=== PATIENT | female | born 1950 | race Caucasian/White ===

== ENCOUNTER 2020-01-24 16:55 | Inpatient (IN) | payer MEDICARE ==
[2020-01-24] MEDS ORDERED: ASPIRIN 81 MG PO STA (17:19)
[2020-01-24] MEDS ORDERED: MORPHINE SULFATE 2 MG/ML SYRINGE IVP STA (17:25)
[2020-01-24] MEDS ORDERED: OSELTAMIVIR 75 MG CAP PO STA (17:27)
[2020-01-24 17:58] LABS: Basophils % (A) 0 %; Eosinophils % (A) 0 %; HCT 36.4 % (34.0-46.0); Lymphocytes # (A) 2.3 k/uL (1.0-4.8); Lymphocytes % (A) 13 %; MCH 27.5 pg (25.0-35.0); MCV 83.1 fL (80.0-100.0); Monocytes # (A) 0.5 k/uL (0-1.0); Monocytes % (A) 3 %; Neutrophils # (A) 15.3 k/uL (1.3-7.7); Neutrophils % (A) 84 %; Platelet Count 179 k/uL (150-450); RBC 4.38 m/uL (3.80-5.40); RDW 13.1 % (11.5-15.5); WBC 18.3 k/uL (3.8-10.6)
--- NOTE | 2020-01-24 18:03 | ED ---
General Adult HPI - General Chief complaint: Upper Respiratory Infection Stated complaint: Cough, body aches Time Seen by Provider: 01/24/20 17:04 Source: patient, RN notes reviewed, old records reviewed Mode of arrival: ambulatory Limitations: no limitations - History of Present Illness Initial comments: 69-year-old female patient upper intestinal history of STD for approximately one day of cough, fever, chest pain, short of breath. Patient reports that the pain is substernal pleuritic in nature. Patient did have a recent drive from [place] to [place] approximately one week ago. Course others are sick with similar symptoms. Denies any prior past medical history. Patient reports that she had a cardiac catheterization one year ago which did not display significant disease, no stent was placed. Denies any leg pain. Denies any prior history of VTE. Systemic: Pt denies fatigue, fever/chills, rash. Pt denies weakness, night sweats, weight loss. Neuro: Pt denies headache, visual disturbances, syncope or pre-syncope. HEENT: Pt denies ocular discharge or irritation, otalgia, rhinorrhea, pharyngitis or notable lymphadenopathy. Cardiopulmonary: Pt denies heart palpitations, dyspnea on exertion. Abdominal/GI: Pt denies abdominal pain, n/v/d. : Pt denies dysuria, burning w/ urination, frequency/urgency. Denies new onset urinary or bowel incontinence. MSK: Pt denies myalgia, loss of strength or function in extremities. Neuro: Pt denies new onset weakness, paresthesias. - Related Data Home Medications Medication Instructions Recorded Confirmed Alendronate Sodium [Fosamax] 70 mg PO REICH 01/24/20 01/24/20 Dextromethorphan Polistirex 60 mg PO Q12H PRN 01/24/20 01/24/20 [Delsym] Naproxen 375 mg PO BID PRN 01/24/20 01/24/20 Allergies Allergy/AdvReac Type Severity Reaction Status Date / Time Penicillins Allergy Itching Verified 01/24/20 19:41 Review of Systems ROS Statement: Those systems with pertinent positive or pertinent negative responses have been documented in the HPI. ROS Other: All systems not noted in ROS Statement are negative. Past Medical History Past Medical History: No Reported History History of Any Multi-Drug Resistant Organisms: None Reported Past Surgical History: Breast Surgery Past Psychological History: No Psychological Hx Reported Smoking Status: Current every day smoker Past Alcohol Use History: None Reported Past Drug Use History: None Reported General Exam - General Exam Comments Initial Comments: Constitutional: NAD, AOX3, Pt has pleasant affect. HEENT: NC/AT, trachea midline, neck supple, no lymphadenopathy. Posterior pharynx non erythematous, without exudates. External ears appear normal, without discharge. Mucous membranes moist. Eyes PERRLA, EOM intact. There is no scleral icterus. No pallor noted. Cardiopulmonary: RRR, no murmurs, rubs or gallops, no JVD noted. Lungs CTAB in anterior and posterior mejia. No peripheral edema. Abdominal exam: Abdomen soft and non-distended. Abdomen non-tender to palpation in all 4 quadrants. Bowel sounds active in LLQ. No hepatosplenomegaly. No ecchymosis Neuro: CN II-XII grossly intact. No nuchal rigidity. No raccon eyes, no hwang sign, no hemotympanum. No cervical spinal tenderness. MSK: No posterior calf tenderness bilaterally, homans sign negative bilaterally. Posterior tibialis and radial pulse +2 bilaterally. Sensation intact in upper and lower extremities. Full active ROM in upper and lower extremities, 5/5 stregnth. Limitations: no limitations Course Vital Signs 01/24/20 01/24/20 01/24/20 16:57 18:57 19:27 Temperature 98.4 F 98.5 F Pulse Rate 93 66 77 Respiratory 22 18 20 Rate Blood Pressure 110/67 138/72 138/68 O2 Sat by Pulse 96 98 98 Oximetry 01/24/20 20:00 Temperature 98.8 F Pulse Rate 70 Respiratory 18 Rate Blood Pressure 138/61 O2 Sat by Pulse 97 Oximetry Medical Decision Making - Medical Decision Making 69-year-old female patient upper intestinal history of STD for approximately one day of cough, fever, chest pain, short of breath. Patient reports that the pain is substernal pleuritic in nature. Patient did have a recent drive from [place] to [place] approximately one week ago. Course others are sick with similar symptoms. Denies any prior past medical history. Patient reports that she had a cardiac catheterization one year ago which did not display significant disease, no stent was placed. Denies any leg pain. Denies any prior history of VTE. Patient also has a stable, afebrile. Physical exam did not display acute pathology. Laboratory investigations are obtained, significant for leukocytosis of 18. Lungs the a positive. Troponin negative. D-dimer was elevated. CT chest angiography was obtained, this displayed no evidence of PE. Bilateral pulmonary interstitial and alveolar infiltrates. Right lower lobe mucus plugging. Patient has been visiting her mother who is in hospice on a daily basis she will be treated for nosocomial pneumonia. Reports that she did previously have a amoxicillin ALLERGY as a child hours and taking penicillins last 5 years without difficulty. Troponins will be trended. Patient is pain- free at this time. Case discussed in depth with Dr. Baxter, admitting physician Dr. Saha. - Lab Data Result diagrams: 01/24/20 17:39 01/24/20 17:39 Lab Results 01/24/20 01/24/20 01/24/20 Range/Units 17:00 17:39 17:39 WBC 18.3 H (3.8-10.6) k/uL RBC 4.38 (3.80-5.40) m/uL Hgb 12.0 (11.4-16.0) gm/dL Hct 36.4 (34.0-46.0) % MCV 83.1 (80.0-100.0) fL MCH 27.5 (25.0-35.0) pg MCHC 33.0 (31.0-37.0) g/dL RDW 13.1 (11.5-15.5) % Plt Count 179 (150-450) k/uL Neutrophils % 84 % Lymphocytes % 13 % Monocytes % 3 % Eosinophils % 0 % Basophils % 0 % Neutrophils # 15.3 H (1.3-7.7) k/uL Lymphocytes # 2.3 (1.0-4.8) k/uL Monocytes # 0.5 (0-1.0) k/uL Eosinophils # 0.0 (0-0.7) k/uL Basophils # 0.0 (0-0.2) k/uL PT (9.0-12.0) sec INR (<1.2) APTT (22.0-30.0) sec D-Dimer (<0.60) mg/L FEU Sodium 138 (137-145) mmol/L Potassium 4.0 (3.5-5.1) mmol/L Chloride 107 (98-107) mmol/L Carbon Dioxide 23 (22-30) mmol/L Anion Gap 8 mmol/L BUN 20 H (7-17) mg/dL Creatinine 0.61 (0.52-1.04) mg/dL Est GFR (CKD-EPI)AfAm >90 (>60 ml/min/1.73 sqM) Est GFR (CKD-EPI)NonAf >90 (>60 ml/min/1.73 sqM) Glucose 110 H (74-99) mg/dL Plasma Lactic Acid Ti (0.7-2.0) mmol/L Calcium 8.9 (8.4-10.2) mg/dL Magnesium 2.0 (1.6-2.3) mg/dL Total Bilirubin 0.8 (0.2-1.3) mg/dL AST 32 (14-36) U/L ALT 17 (4-34) U/L Alkaline Phosphatase 75 (38-126) U/L Troponin I (0.000-0.034) ng/mL NT-Pro-B Natriuret Pep pg/mL Total Protein 6.8 (6.3-8.2) g/dL Albumin 3.9 (3.5-5.0) g/dL Influenza Type A RNA Detected H (Not Detectd) Influenza Type B (PCR) Not Detected (Not Detectd) 01/24/20 01/24/20 01/24/20 Range/Units 17:39 17:39 17:39 WBC (3.8-10.6) k/uL RBC (3.80-5.40) m/uL Hgb (11.4-16.0) gm/dL Hct (34.0-46.0) % MCV (80.0-100.0) fL MCH (25.0-35.0) pg MCHC (31.0-37.0) g/dL RDW (11.5-15.5) % Plt Count (150-450) k/uL Neutrophils % % Lymphocytes % % Monocytes % % Eosinophils % % Basophils % % Neutrophils # (1.3-7.7) k/uL Lymphocytes # (1.0-4.8) k/uL Monocytes # (0-1.0) k/uL Eosinophils # (0-0.7) k/uL Basophils # (0-0.2) k/uL PT 10.0 (9.0-12.0) sec INR 1.0 (<1.2) APTT 23.3 (22.0-30.0) sec D-Dimer 1.20 H (<0.60) mg/L FEU Sodium (137-145) mmol/L Potassium (3.5-5.1) mmol/L Chloride (98-107) mmol/L Carbon Dioxide (22-30) mmol/L Anion Gap mmol/L BUN (7-17) mg/dL Creatinine (0.52-1.04) mg/dL Est GFR (CKD-EPI)AfAm (>60 ml/min/1.73 sqM) Est GFR (CKD-EPI)NonAf (>60 ml/min/1.73 sqM) Glucose (74-99) mg/dL Plasma Lactic Acid Ti (0.7-2.0) mmol/L Calcium (8.4-10.2) mg/dL Magnesium (1.6-2.3) mg/dL Total Bilirubin (0.2-1.3) mg/dL AST (14-36) U/L ALT (4-34) U/L Alkaline Phosphatase (38-126) U/L Troponin I <0.012 (0.000-0.034) ng/mL NT-Pro-B Natriuret Pep 2170 pg/mL Total Protein (6.3-8.2) g/dL Albumin (3.5-5.0) g/dL Influenza Type A RNA (Not Detectd) Influenza Type B (PCR) (Not Detectd) 01/24/20 Range/Units 17:42 WBC (3.8-10.6) k/uL RBC (3.80-5.40) m/uL Hgb (11.4-16.0) gm/dL Hct (34.0-46.0) % MCV (80.0-100.0) fL MCH (25.0-35.0) pg MCHC (31.0-37.0) g/dL RDW (11.5-15.5) % Plt Count (150-450) k/uL Neutrophils % % Lymphocytes % % Monocytes % % Eosinophils % % Basophils % % Neutrophils # (1.3-7.7) k/uL Lymphocytes # (1.0-4.8) k/uL Monocytes # (0-1.0) k/uL Eosinophils # (0-0.7) k/uL Basophils # (0-0.2) k/uL PT (9.0-12.0) sec INR (<1.2) APTT (22.0-30.0) sec D-Dimer (<0.60) mg/L FEU Sodium (137-145) mmol/L Potassium (3.5-5.1) mmol/L Chloride (98-107) mmol/L Carbon Dioxide (22-30) mmol/L Anion Gap mmol/L BUN (7-17) mg/dL Creatinine (0.52-1.04) mg/dL Est GFR (CKD-EPI)AfAm (>60 ml/min/1.73 sqM) Est GFR (CKD-EPI)NonAf (>60 ml/min/1.73 sqM) Glucose (74-99) mg/dL Plasma Lactic Acid Ti 1.3 (0.7-2.0) mmol/L Calcium (8.4-10.2) mg/dL Magnesium (1.6-2.3) mg/dL Total Bilirubin (0.2-1.3) mg/dL AST (14-36) U/L ALT (4-34) U/L Alkaline Phosphatase (38-126) U/L Troponin I (0.000-0.034) ng/mL NT-Pro-B Natriuret Pep pg/mL Total Protein (6.3-8.2) g/dL Albumin (3.5-5.0) g/dL Influenza Type A RNA (Not Detectd) Influenza Type B (PCR) (Not Detectd) Disposition Clinical Impression: Nosocomial pneumonia, Influenza A, Chest pain Disposition: ADMITTED IP TO THIS HOSP Condition: Serious Is patient prescribed a controlled substance at d/c from ED?: No Referrals: Nonstaff,Physician [Primary Care Provider] - 1-2 days
[2020-01-24 18:05] LABS: ALT 17 U/L (4-34); AST 32 U/L (14-36); African American GFR (CKD) >90 (>60 ml/min/1.73 sqM); Albumin 3.9 g/dL (3.5-5.0); Alkaline Phosphatase 75 U/L (38-126); Anion Gap 8 mmol/L; Blood Urea Nitrogen 20 mg/dL (7-17); Calcium 8.9 mg/dL (8.4-10.2); Carbon Dioxide 23 mmol/L (22-30); Chloride 107 mmol/L (98-107); Glucose 110 mg/dL (74-99); Non-African American GFR(CKD) >90 (>60 ml/min/1.73 sqM); Sodium 138 mmol/L (137-145); Total Bilirubin 0.8 mg/dL (0.2-1.3); Total Protein 6.8 g/dL (6.3-8.2)
[2020-01-24 18:11] LABS: Partial Thromboplastin Time 23.3 sec (22.0-30.0)
[2020-01-24 18:14] LABS: D-Dimer 1.2 mg/L FEU (<0.60)
--- NOTE | 2020-01-24 18:20 | XR ---
EXAMINATION TYPE: XR chest 2V DATE OF EXAM: 01/24/2020 COMPARISON: NONE HISTORY: Cough. Body aches TECHNIQUE: FINDINGS: There is small area of linear infiltrate and atelectasis left lung base. The other lung fie lds are clear. Heart size is normal. There is mild thoracic dextroscoliosis. Heart and mediastinum wi thin normal limits. There is no pleural effusion. IMPRESSION: Minimal infiltrate or subsegmental atelectasis left lower lobe. Normal heart.
[2020-01-24] MEDS ORDERED: SODIUM CHLORIDE 0.9% 1,000 ML IV ONE (18:46)
--- NOTE | 2020-01-24 19:00 | CT ---
EXAMINATION TYPE: CT chest angio for PE DATE OF EXAM: 01/24/2020 COMPARISON: None HISTORY: shortness of breath CT DLP: 191 mGycm Automated exposure control for dose reduction was used. CONTRAST: Performed with IV Contrast, patient injected with 100 mL of Isovue 370. There are 3-D post processed images. There is patchy groundglass interstitial infiltrate in both lungs predominantly in the upper lobes. T here is no evidence of a pulmonary mass. There is patchy coalescent infiltrate and atelectasis at the lung bases bilaterally. There is no pericardial effusion. Thoracic aorta is atheromatous. Ascending aorta measures 3.3 cm. There is no dissection. There is normal contrast opacification of the pulmonary arteries. There are no filling defects. There appears to be some mucous plugging in the right lower lobe bronchi. There are a few bilateral bronch ial lymph nodes that measure up to 1.3 cm. There is no mediastinal adenopathy. The bony thorax is int act. There is mild thoracic dextroscoliosis. IMPRESSION: No evidence of pulmonary embolism. Bilateral pulmonary interstitial and alveolar infiltrates as above more likely related to inflammator y disease. Right lower lobe mucous plugging.
[2020-01-24] MEDS ORDERED: AZITHROMYCIN 500 MG TAB PO STA (19:07)
[2020-01-24] MEDS ORDERED: cefTRIAXone IN SWFI 1,000 MG/10 ML SYRINGE IVP STA (19:07)
[2020-01-24] MEDS ORDERED: NALOXONE 0.4 MG/ML 1 ML VIAL IV PRN (19:20)
[2020-01-24] MEDS ORDERED: ACETAMINOPHEN TAB 325 MG TAB PO PRN (19:20)
[2020-01-24] MEDS ORDERED: PIPERACILLIN-TAZOBACTAM 3.375 GM in SODIUM CHLORIDE 0.9% 100 ML IVPB STA ×2 (19:22→19:39)
[2020-01-24] MEDS: SODIUM CHLORIDE 0.9% 1,000 ML IV SCH (19:44)
[2020-01-24] MEDS ORDERED: LEVOFLOXACIN 750MG-D5W PMX 750 MG in DEXTROSE/WATER 1 150ML.BAG IVPB ONE (20:00)
[2020-01-24] MEDS ORDERED: IPRATROPIUM-ALBUTEROL 3 ML NEB INHALATION PRN (20:12)
[2020-01-25] MEDS ORDERED: NAPROXEN 250 MG TAB PO PRN (02:13)
[2020-01-25] MEDS ORDERED: PIPERACILLIN-TAZOBACTAM 3.375 GM in SODIUM CHLORIDE 0.9% 100 ML IVPB SCH (04:00)
[2020-01-25] MEDS: SODIUM CHLORIDE 0.9% 1,000 ML IV SCH ×2 (06:04→19:10)
[2020-01-25 06:16] LABS: Basophils % (A) 0 %; Eosinophils # (A) 0.1 k/uL (0-0.7); Eosinophils % (A) 0 %; HCT 31.9 % (34.0-46.0); HGB 10.3 gm/dL (11.4-16.0); Lymphocytes # (A) 2.3 k/uL (1.0-4.8); Lymphocytes % (A) 17 %; MCH 27.4 pg (25.0-35.0); MCHC 32.4 g/dL (31.0-37.0); MCV 84.6 fL (80.0-100.0); Monocytes # (A) 0.4 k/uL (0-1.0); Monocytes % (A) 3 %; Neutrophils # (A) 10.1 k/uL (1.3-7.7); Neutrophils % (A) 78 %; Platelet Count 170 k/uL (150-450); RBC 3.77 m/uL (3.80-5.40); RDW 13.1 % (11.5-15.5)
[2020-01-25 06:18] LABS: ALT 14 U/L (4-34); AST 23 U/L (14-36); African American GFR (CKD) >90 (>60 ml/min/1.73 sqM); Albumin 2.9 g/dL (3.5-5.0); Alkaline Phosphatase 59 U/L (38-126); Anion Gap 2 mmol/L; Blood Urea Nitrogen 15 mg/dL (7-17); Calcium 7.9 mg/dL (8.4-10.2); Carbon Dioxide 25 mmol/L (22-30); Chloride 109 mmol/L (98-107); Glucose 88 mg/dL (74-99); Non-African American GFR(CKD) >90 (>60 ml/min/1.73 sqM); Potassium 3.6 mmol/L (3.5-5.1); Sodium 136 mmol/L (137-145); Total Bilirubin 0.3 mg/dL (0.2-1.3); Total Protein 5.5 g/dL (6.3-8.2)
[2020-01-25] MEDS ORDERED: HEPARIN SODIUM,PORCINE 5,000 UNIT/ML 1 ML VIAL SQ SCH (09:00)
[2020-01-25] MEDS: OSELTAMIVIR 75 MG CAP PO SCH ×2 (09:22→20:36)
[2020-01-25] MEDS: FAMOTIDINE 20 MG TAB PO SCH ×2 (09:22→20:36)
--- NOTE | 2020-01-25 09:38 | P.CRDCN ---
History of Present Illness Consult date: 01/25/20 Requesting physician: Bhanu Girard Consult reason: chest pain Chief complaint: Productive cough, fever chills History of present illness: This is a 69-year-old female with no prior documented hypertension, no diabetes, no hyperlipidemia, nonsmoker, has been visiting with her mom who rec ently was put on hospice at [facility], states that she's been experiencing body aches, fever chills, productive cough. She states that her cough has been aggressively getting worse. She started to develop some chest discomfort that worsens significantly every time that she would cough. She came to the hospital for further evaluation and treatment. A cardiology consultation was requested because of the chest pain. Chest x-ray on presentation here showed minimal infiltrate or subsegmental atelectasis in the left lower lobe. CTA of the chest did not reveal evidence of pulmonary embolism. Bilateral pulmonary interstitial and alveolar infiltrates noted. EKG on presentation here shows a normal sinus rhythm with nonspecific ST-T wave changes. Laboratory data was reviewed, white blood cell count 18.3 on admission, 13 this morning, hemoglobin on admission 12, 10.3 this morning, platelet count 170, d-dimer 1.2, sodium 136, potassium 3.6, BUN 15, creatinine 0.5. Magnesium 2.0, troponins negative 3. BNP level 2170. Past Medical History Past Medical History: No Reported History History of Any Multi-Drug Resistant Organisms: None Reported Past Surgical History: Breast Surgery Past Psychological History: No Psychological Hx Reported Smoking Status: Former smoker Past Alcohol Use History: None Reported Past Drug Use History: None Reported Medications and Allergies Home Medications Medication Instructions Recorded Confirmed Type Alendronate Sodium [Fosamax] 70 mg PO REICH 01/24/20 01/24/20 History Dextromethorphan Polistirex 60 mg PO Q12H PRN 01/24/20 01/24/20 History [Delsym] Naproxen 375 mg PO BID PRN 01/24/20 01/24/20 History Allergies Allergy/AdvReac Type Severity Reaction Status Date / Time Penicillins Allergy Itching Verified 01/24/20 19:41 Physical Exam Vitals: Vital Signs Temp Pulse Pulse Resp BP BP BP 01/25/20 08:55 98.3 F 73 16 158/66 01/25/20 04:00 98.3 F 71 16 136/64 01/25/20 00:00 75 16 135/64 01/24/20 20:34 98.6 F 70 20 127/70 01/24/20 20:00 98.8 F 70 18 138/61 01/24/20 19:27 77 20 138/68 01/24/20 18:57 98.5 F 66 18 138/72 01/24/20 16:57 98.4 F 93 22 110/67 Pulse Ox 01/25/20 08:55 98 01/25/20 04:00 98 01/25/20 00:00 95 01/24/20 20:34 99 01/24/20 20:00 97 01/24/20 19:27 98 01/24/20 18:57 98 01/24/20 16:57 96 Intake and Output 01/24/20 01/25/20 01/25/20 22:59 06:59 14:59 Intake Total 240 0 240 Balance 240 0 240 Intake: Oral 240 0 240 Other: Weight 53.252 kg 54.1 kg PHYSICAL EXAMINATION: GENERAL: 69-year-old female in no acute distress at the time of my examination HEENT: Head is atraumatic, normocephalic. Pupils equal, round. Sclera anicteric. Conjunctiva are clear. Mucous membranes of the mouth are moist. Neck is supple. There is no elevated jugular venous pressure. No carotid bruit is heard. HEART EXAMINATION: Heart S1 S2 1 systolic murmur is heard CHEST EXAMINATION: On's reveal scattered coarse rhonchi throughout ABDOMEN: Soft, nontender. Bowel sounds are heard. No organomegaly noted. EXTREMITIES: 2+ peripheral pulses with no evidence of peripheral edema and no calf tenderness noted. NEUROLOGIC patient is awake, alert and oriented 3 . . Results 01/25/20 05:36 01/25/20 05:36 Cardiac Enzymes 01/24/20 01/24/20 01/25/20 Range/Units 17:39 17:39 00:00 AST 32 (14-36) U/L Troponin I <0.012 <0.012 (0.000-0.034) ng/mL 01/25/20 01/25/20 Range/Units 05:36 05:36 AST 23 (14-36) U/L Troponin I <0.012 (0.000-0.034) ng/mL Coagulation 01/24/20 Range/Units 17:39 PT 10.0 (9.0-12.0) sec APTT 23.3 (22.0-30.0) sec CBC 01/24/20 01/25/20 Range/Units 17:39 05:36 WBC 18.3 H 13.0 H (3.8-10.6) k/uL RBC 4.38 3.77 L (3.80-5.40) m/uL Hgb 12.0 10.3 L (11.4-16.0) gm/dL Hct 36.4 31.9 L (34.0-46.0) % Plt Count 179 170 (150-450) k/uL Comprehensive Metabolic Panel 01/24/20 01/25/20 Range/Units 17:39 05:36 Sodium 138 136 L (137-145) mmol/L Potassium 4.0 3.6 (3.5-5.1) mmol/L Chloride 107 109 H (98-107) mmol/L Carbon Dioxide 23 25 (22-30) mmol/L BUN 20 H 15 (7-17) mg/dL Creatinine 0.61 0.58 (0.52-1.04) mg/dL Glucose 110 H 88 (74-99) mg/dL Calcium 8.9 7.9 L (8.4-10.2) mg/dL AST 32 23 (14-36) U/L ALT 17 14 (4-34) U/L Alkaline Phosphatase 75 59 (38-126) U/L Total Protein 6.8 5.5 L (6.3-8.2) g/dL Albumin 3.9 2.9 L (3.5-5.0) g/dL Current Medications Generic Name Dose Route Start Last Admin Trade Name Freq PRN Reason Stop Dose Admin Acetaminophen 650 mg 01/24/20 19:20 Tylenol Tab PO Q6HR PRN Mild Pain or Fever > 100.5 Albuterol/Ipratropium 3 ml 01/24/20 20:12 Duoneb 0.5 Mg-3 Mg/3 Ml Soln INHALATION RT-QID PRN Shortness Of Breath Or Wheezing Famotidine 20 mg 01/25/20 09:00 01/25/20 09:22 Pepcid PO 20 mg BID JACKELINE Administration Heparin Sodium (Porcine) 5,000 unit 01/25/20 09:00 Heparin SQ Q12HR JACKELINE Levofloxacin 750 mg/ IV 150 mls @ 100 mls/hr 01/25/20 18:00 Solution IVPB Q24H JACKELINE Piperacillin Sod/Tazobactam 100 mls @ 25 mls/hr 01/25/20 04:00 01/25/20 06:03 Sod 3.375 gm/ Sodium Chloride IVPB 25 mls/hr Q8H JACKELINE Administration Sodium Chloride 1,000 mls @ 75 mls/hr 01/24/20 19:30 01/25/20 06:04 Saline 0.9% IV 75 mls/hr .[id number] JACKELINE Administration Ibuprofen 400 mg 01/24/20 19:20 Motrin PO Q6HR PRN Mild Pain or Fever > 100.5 Naloxone HCl 0.2 mg 01/24/20 19:20 Narcan IV Q2M PRN Opioid Reversal Naproxen 500 mg 01/25/20 02:13 Naprosyn PO BID PRN Pain Oseltamivir Phosphate 75 mg 01/25/20 09:00 01/25/20 09:22 Tamiflu PO 01/29/20 09:01 75 mg Q12HR JACKELINE Administration Intake and Output 01/24/20 01/25/20 01/25/20 22:59 06:59 14:59 Intake Total 240 0 240 Balance 240 0 240 Intake: Oral 240 0 240 Other: Weight 53.252 kg 54.1 kg 01/25/20 05:36 01/25/20 05:36 EKG Interpretations (text) EKG shows normal sinus rhythm with nonspecific ST-T wave changes noted in the lateral leads Assessment and Plan Plan: Assessment and plan #1 chest pain, atypical for acute coronary syndrome. Troponins are negative 3. EKG shows a normal sinus rhythm with nonspecific ST-T wave changes noted in the lateral leads #2 influenza A with associated possible pneumonia Plan We will request an echocardiogram with Doppler study be performed. The patient's pain is very pleuritic in nature. Once her influenza has resolved, we will recommend outpatient stress testing. [place], recommend follow-up when she gets back home. We will put the patient on a baby aspirin daily, check a fasting lipid profile. DNP note has been reviewed, I agree with a documented findings and plan of care. Patient was seen and examined.
[2020-01-25 10:01] LABS: Cholesterol 138 mg/dL (<200); HDL Cholesterol 75 mg/dL (40-60); LDL Cholesterol,Calculated 50 mg/dL (0-99); Triglycerides 63 mg/dL (<150)
--- NOTE | 2020-01-25 13:10 | P.HPIM ---
History of Present Illness This is a pleasant 69-year-old female came in with comments of generalized weakness tiredness and cough with chills and productive but whitish in color came in yesterday. Patient was coming of some shortness of breath denied any orthopnea paroxysmal nocturnal dyspnea. Patient was complaining of chest pain which is a part of generalized body aches she was having from a flu. Patient is diagnosed with influenza. CAT scan of the chest was opted which is showing diffuse infiltrate consistent with the inflammatory reaction mild acute lung injury from extends up. A she is on room air is not requiring any oxygen at this time. Patient was started on broad-spectrum antibiotics sitting for healthcare associated pneumonia although there is no obvious infiltrate with air bronchogram on the CAT scan. I'll antibodies were discontinued patient will be monitored overnight because of the acute lung injury. Chest pain is a atypical will need a stress test as outpatient as per cardiology. Review of Systems REVIEW OF SYSTEMS: CONSTITUTIONAL: As mentioned in HPI HEENT: No recent visual problems or hearing problems. Denied any sore throat. CARDIOVASCULAR: No , orthopnea, PND, no palpitations, no syncope. PULMONARY: No shortness of breath, no cough, no hemoptysis. GASTROINTESTINAL: No diarrhea, no nausea, no vomiting, no abdominal pain. NEUROLOGICAL: No headaches, no weakness, no numbness. HEMATOLOGICAL: Denies any bleeding or petechiae. GENITOURINARY: Denies any burning micturition, frequency, or urgency. MUSCULOSKELETAL/RHEUMATOLOGICAL: Denies any joint pain, swelling, or any muscle pain. ENDOCRINE: Denies any polyuria or polydipsia. The rest of the 14-point review of systems is negative. Past Medical History Past Medical History: No Reported History History of Any Multi-Drug Resistant Organisms: None Reported Past Surgical History: Breast Surgery Past Psychological History: No Psychological Hx Reported Smoking Status: Former smoker Past Alcohol Use History: None Reported Past Drug Use History: None Reported Medications and Allergies Home Medications Medication Instructions Recorded Confirmed Type Alendronate Sodium [Fosamax] 70 mg PO REICH 01/24/20 01/24/20 History Dextromethorphan Polistirex 60 mg PO Q12H PRN 01/24/20 01/24/20 History [Delsym] Naproxen 375 mg PO BID PRN 01/24/20 01/24/20 History Allergies Allergy/AdvReac Type Severity Reaction Status Date / Time Penicillins Allergy Itching Verified 01/24/20 19:41 Physical Exam Vitals: Vital Signs Temp Pulse Pulse Resp BP BP BP 01/25/20 11:53 98.7 F 64 16 146/69 01/25/20 08:55 98.3 F 73 16 158/66 01/25/20 04:00 98.3 F 71 16 136/64 01/25/20 00:00 75 16 135/64 01/24/20 20:34 98.6 F 70 20 127/70 01/24/20 20:00 98.8 F 70 18 138/61 01/24/20 19:27 77 20 138/68 01/24/20 18:57 98.5 F 66 18 138/72 01/24/20 16:57 98.4 F 93 22 110/67 Pulse Ox 01/25/20 11:53 96 01/25/20 08:55 98 01/25/20 04:00 98 01/25/20 00:00 95 01/24/20 20:34 99 01/24/20 20:00 97 01/24/20 19:27 98 01/24/20 18:57 98 01/24/20 16:57 96 Intake and Output 01/24/20 01/25/20 01/25/20 22:59 06:59 14:59 Intake Total 240 0 540 Balance 240 0 540 Intake: IV 300 Sodium Chloride 0.9% 1, 300 000 ml @ 75 mls/hr IV . [id number] [facility] Rx#:[id number] Oral 240 0 240 Other: Voiding Method Toilet # Voids 2 # Bowel Movements 1 Weight 53.252 kg 54.1 kg PHYSICAL EXAMINATION: GENERAL: The patient is alert and oriented x3, not in any acute distress. Well developed, well nourished. HEENT: Pupils are round and equally reacting to light. EOMI. No scleral icterus. No conjunctival pallor. Normocephalic, atraumatic. No pharyngeal erythema. No thyromegaly. CARDIOVASCULAR: S1 and S2 present. No murmurs, rubs, or gallops. PULMONARY: Diffuse bilateral rhonchi was appreciated ABDOMEN: Soft, nontender, nondistended, normoactive bowel sounds. No palpable organomegaly. MUSCULOSKELETAL: No joint swelling or deformity. EXTREMITIES: No cyanosis, clubbing, or pedal edema. NEUROLOGICAL: Gross neurological examination did not reveal any focal deficits. SKIN: No rashes. Results CBC & Chem 7: 01/25/20 05:36 01/25/20 05:36 Labs: Abnormal Lab Results - Last 24 Hours (Table) 01/24/20 01/24/20 01/24/20 Range/Units 17:00 17:39 17:39 WBC 18.3 H (3.8-10.6) k/uL RBC (3.80-5.40) m/uL Hgb (11.4-16.0) gm/dL Hct (34.0-46.0) % Neutrophils # 15.3 H (1.3-7.7) k/uL D-Dimer (<0.60) mg/L FEU Sodium (137-145) mmol/L Chloride (98-107) mmol/L BUN 20 H (7-17) mg/dL Glucose 110 H (74-99) mg/dL Calcium (8.4-10.2) mg/dL Total Protein (6.3-8.2) g/dL Albumin (3.5-5.0) g/dL HDL Cholesterol (40-60) mg/dL Influenza Type A RNA Detected H (Not Detectd) 01/24/20 01/25/20 01/25/20 Range/Units 17:39 05:36 05:36 WBC 13.0 H (3.8-10.6) k/uL RBC 3.77 L (3.80-5.40) m/uL Hgb 10.3 L (11.4-16.0) gm/dL Hct 31.9 L (34.0-46.0) % Neutrophils # 10.1 H (1.3-7.7) k/uL D-Dimer 1.20 H (<0.60) mg/L FEU Sodium 136 L (137-145) mmol/L Chloride 109 H (98-107) mmol/L BUN (7-17) mg/dL Glucose (74-99) mg/dL Calcium 7.9 L (8.4-10.2) mg/dL Total Protein 5.5 L (6.3-8.2) g/dL Albumin 2.9 L (3.5-5.0) g/dL HDL Cholesterol (40-60) mg/dL Influenza Type A RNA (Not Detectd) 01/25/20 Range/Units 05:36 WBC (3.8-10.6) k/uL RBC (3.80-5.40) m/uL Hgb (11.4-16.0) gm/dL Hct (34.0-46.0) % Neutrophils # (1.3-7.7) k/uL D-Dimer (<0.60) mg/L FEU Sodium (137-145) mmol/L Chloride (98-107) mmol/L BUN (7-17) mg/dL Glucose (74-99) mg/dL Calcium (8.4-10.2) mg/dL Total Protein (6.3-8.2) g/dL Albumin (3.5-5.0) g/dL HDL Cholesterol 75 H (40-60) mg/dL Influenza Type A RNA (Not Detectd) Assessment and Plan Plan: -Sepsis secondary to influenza continue with Tamiflu no evidence of Bactrim pneumonia although that and medics will be discontinue -Possible acute lung injury from a inflammatory reaction from influenza suppo rtive treatment continue with IV fluids -Chest pain atypical noncardiac most probably stress test as an outpatient down the line once influenza is better -Ruled out pulmonary embolism.
--- NOTE | 2020-01-25 17:00 | ECHOF ---
Referral Reason:chest pain MEASUREMENTS -------- HEIGHT: 149.9 cm WEIGHT: 54.0 kg BP: 136/64 IVSd: 1.1 cm (0.6 - 1.1) LVIDd: 3.6 cm (3.9 - 5.3) LVPWd: 1.0 cm (0.6 - 1.1) IVSs: 1.4 cm LVIDs: 2.6 cm LVPWs: 1.6 cm RVIDd: 2.7 cm (< 3.3) LAESV Index (A-L): 29.19 ml/m Ao Diam: 3.0 cm (2.0 - 3.7) AV Cusp: 2.0 cm (1.5 - 2.6) EPSS: 0.5 cm MV E Rober: 0.79 m/s MV DecT: 186 ms MV A Rober: 0.88 m/s MV E/A Ratio: 0.89 AR PHT: 443 ms RAP: 5.00 mmHg RVSP: 31.99 mmHg MV EF SLOPE: 70.85 mm/s (70 - 150) MV EXCURSION: 12.36 mm (> 18.000) FINDINGS -------- Sinus rhythm. This was a technically good study. The left ventricular size is normal. There is borderline concentric left ventricular hypertrophy. Overall left ventricular systolic function is normal with, an EF between 55 - 60 %. The diastolic filling pattern is normal for the age of the patient 7.62. The right ventricle is normal in size. LA is midly dilated 29-33ml/m2. The right atrial size is normal. Interatrial and interventricular septum intact. The aortic valve is trileaflet and appears structurally normal. There is mild aortic regurgitation. There is no evidence of aortic stenosis. Mild mitral regurgitation is present. Mild tricuspid regurgitation present. There is borderline pulmonary artery hypertension. The righ t ventricular systolic pressure, as measured by Doppler, is 31.99mmHg. There is no pulmonic regurgitation present. The aortic root size is normal. The inferior vena cava is mildly dilated. There is no pericardial effusion. CONCLUSIONS -------- 1. Sinus rhythm. 2. This was a technically good study. 3. The left ventricular size is normal. 4. There is borderline concentric left ventricular hypertrophy. 5. Overall left ventricular systolic function is normal with, an EF between 55 - 60 %. 6. The diastolic filling pattern is normal for the age of the patient 7.62 7. The right ventricle is normal in size. 8. LA is midly dilated 29-33ml/m2. 9. The right atrial size is normal. 10. Interatrial and interventricular septum intact. 11. The aortic valve is trileaflet and appears structurally normal. 12. There is mild aortic regurgitation. 13. There is no evidence of aortic stenosis. 14. Mild mitral regurgitation is present. 15. Mild tricuspid regurgitation present. 16. There is borderline pulmonary artery hypertension. 17. The right ventricular systolic pressure, as measured by Doppler, is 31.99mmHg. 18. There is no pulmonic regurgitation present. 19. The aortic root size is normal. 20. The inferior vena cava is mildly dilated. 21. There is no pericardial effusion. PROVIDER NETWORK ANALYST: Torri Stafford RDCS
[2020-01-25] MEDS: IBUPROFEN 400 MG TAB PO PRN (17:19)
[2020-01-25] MEDS ORDERED: LEVOFLOXACIN 750MG-D5W PMX 750 MG in DEXTROSE/WATER 1 150ML.BAG IVPB SCH (18:00)
[2020-01-25] MEDS ORDERED: MELATONIN 3 MG TABLET PO SCH (21:00)
[2020-01-26 06:37] VITALS: RESP 16
[2020-01-26] MEDS: SODIUM CHLORIDE 0.9% 1,000 ML IV SCH (07:32)
[2020-01-26] MEDS: FAMOTIDINE 20 MG TAB PO SCH (07:32)
[2020-01-26] MEDS: OSELTAMIVIR 75 MG CAP PO SCH (07:32)
[2020-01-26] MEDS: IBUPROFEN 400 MG TAB PO PRN (07:38)
[2020-01-26] MEDS ORDERED: ENOXAPARIN 40 MG/0.4 ML SYRINGE SQ SCH (09:00)
[2020-01-26] MEDS ORDERED: ASPIRIN 81 MG PO SCH (09:00)
--- NOTE | 2020-01-26 12:15 | P.DS ---
Providers Date of admission: 01/24/20 19:54 Expected date of discharge: 01/26/20 Attending physician: Bhanu Girard Consults: 01/24/20 19:20 Consult Physician Stat Consulting Provider: Katiana Carr Consult Reason/Comments: chest pain, pneumonia, influenza Do you want consulting provider notified?: Yes Primary care physician: Physician Nonsta Hospital Course: Final diagnosis -Sepsis secondary to influenza -Possible acute lung injury from a inflammatory reaction from influenza -Chest pain atypical noncardiac -Ruled out pulmonary embolism Discharge disposition Patient is being discharged in a stable condition with guarded prognosis to home and will follow-up with her primary care provider in [place] after her mother's . Patient also instructed to follow-up with cardiology for possible stress test in the outpatient setting. Patient will continue on Tamiflu to complete course for positive influenza. Total time taken is 35 minutes. History of present illness This is a pleasant 69-year-old female came in with comments of generalized weakness tiredness and cough with chills and productive but whitish in color came in yesterday. Patient was having some shortness of breath denied any orthopnea paroxysmal nocturnal dyspnea. Patient was complaining of chest pain which is a part of generalized body aches she was having from a flu. Patient is diagnosed with influenza. CAT scan of the chest was opted which is showing diffuse infiltrate consistent with the inflammatory reaction mild acute lung injury from extends up. A she is on room air is not requiring any oxygen at this time. Patient was started on broad-spectrum antibiotics sitting for healthcare associated pneumonia although there is no obvious infiltrate with air bronchogram on the CAT scan. All antibiotics were discontinued patient will be monitored overnight because of the acute lung injury. Chest pain is a atypical will need a stress test as outpatient as per cardiology. 01/26/2020 Patient underwent echo showing overall left ventricular systolic function is normal with an EF between 55 and 60% with no pericardial effusion noted with mild mitral and tricuspid regurgitation present. Patient was seen and evaluated by cardiology recommending a daily baby aspirin along with possible stress test in the outpatient setting once patient returns home and influenza has resolved. Patient will continue with Tamiflu to complete the course. Patient instructed to follow-up with primary care provider when she returns home. Patient currently just lost her mother last night as she is visiting here as mother was on hospice. Arrangements for her are being made for this weekend. Currently patient denies any chest pain, shortness of breath, or palpitations. Patient is afebrile. No reports of nausea or vomiting and patient is tolerating diet. Patient continues to have some chest wall discomfort when she is coughing and feels slightly fatigued. Encourage the patient to get plenty of rest and also encouraged fluids. Today patient is stable for discharge and will be going today. On exam vital signs are stable. Temp is 97.5F, pulse is 68, respirations are 16, blood pressure is 150/80, oxygen saturation is 99% on room air. Cardio S1, S2 are present. Respiratory system shows clear to auscultation. Abdomen is soft and nontender. Nervous system shows no focal deficits. Please refer to medication reconciliation sheet for a list of medications. Patient Condition at Discharge: Stable Plan - Discharge Summary Discharge Rx Participant: Yes New Discharge Prescriptions: New Aspirin 81 mg PO DAILY 30 Days #30 chew Oseltamivir [Tamiflu] 75 mg PO Q12HR 6 Days #6 cap Continue Naproxen 375 mg PO BID PRN PRN Reason: Pain Alendronate Sodium [Fosamax] 70 mg PO REICH Dextromethorphan Polistirex [Delsym] 60 mg PO Q12H PRN PRN Reason: Cough Discharge Medication List Alendronate Sodium [Fosamax] 70 mg PO REICH 01/24/20 [History] Dextromethorphan Polistirex [Delsym] 60 mg PO Q12H PRN 01/24/20 [History] Naproxen 375 mg PO BID PRN 01/24/20 [History] Aspirin 81 mg PO DAILY 30 Days #30 chew 01/26/20 [Rx] Oseltamivir [Tamiflu] 75 mg PO Q12HR 6 Days #6 cap 01/26/20 [Rx] Follow up Appointment(s)/Referral(s): Gary You MD [STAFF PHYSICIAN] - 02/06/20 3:45 pm Nonstaff,Physician [Primary Care Provider] - 1-2 days Patient Instructions/Handouts: Influenza (DC) Activity/Diet/Wound Care/Special Instructions: Activity Limited until follow-up Follow-up with primary care provider once returned home Continue current diet Continue Tamiflu until finished Encouraged fluids and rest Follow-up with cardiology in the outpatient setting Discharge Disposition: HOME SELF-CARE
[2020-01-26 12:16] VITALS: BP 134/78; PULSE 67; TEMP 98
--- NOTE | 2020-01-29 12:23 | CDI ---
Documentation Clarification Form Date: 01/29/20 From: Nayana Madsen Phone: If you have a question about this query, please contact Kelsey Quevedo, [place] at [phone] between 8am and 5pm. Admit Date: 01/24/20 Discharge Date:01/26/20 Patient Name: Erna Kruse Visit Number: [id number] ATTENTION: The Clinical Documentation Specialists (CDI) and [facility] Coding Staff appreciate your assistance in clarifying documentation. Please respond to the clarification below the line at the bottom and electronically sign. The CDI & [facility] Coding staff will review the response and follow-up if needed. Please note: Queries are made part of the Legal Health Record. If you have any questions, please contact the author of this message via ITS. Dear Dr. Archer The patient presented with the following: one day of cough, fever, chest pain, short of breath. Sepsis secondary to influenza is documented in the H&P and discharge summary. History/Risk Factors: Influenza A Clinical Indicators: Fever, elevated WBC, elevated neutrophils WBC: 18.3 Lactic acid: 1.3 Blood cultures: No growth Vitals signs on admission: T. 98.4, P., 93, R. 22, BP 110/67 Treatment:Tamiflu ID Consult: Antibiotics: IV Bolus: Other: Can you clarify the documented diagnosis of sepsis? Sepsis ruled in (Please document any additional clinical indicators supportive of you diagnosis of sepsis below) Sepsis ruled out after study Other, please specify Unable to determine Sepsis due to influenza which was already dictated MTDD
== END 2020-01-26 12:24 | disposition home or self-care (01) | DRG 872 ==
LOC: EC 16:55 → 3SCARD 19:54 → 6NMEDSUR 01-25 13:44
PROVIDERS: ADMIT Hospitalist; ATTEND Hospitalist
DX: A41.89 Other specified sepsis (principal); S27.399A Other injuries of lung, unspecified, initial encounter; F17.200 Nicotine dependence, unspecified, uncomplicated; I08.1 Rheumatic disorders of both mitral and tricuspid valves; J10.1 Influenza due to other identified influenza virus with other respiratory manifestations; R07.89 Other chest pain; Z79.83 Long term (current) use of bisphosphonates
CPT/HCPCS: 36415; 71046; 71275; 80053; 80061; 83605; 83735; 83880; 84484; 85025; 85379; 85610; 85730; 87040; 87502; 93005; 93306; 94640; 96361; 96365; 96375; 99285